=== PATIENT | female | born 1970 | race Two or more races ===

== ENCOUNTER 2019-02-14 23:03 | Inpatient (IN) | payer MEDICAID ==
[~2019-02-14] VITALS: Ht 152.4 cm; Wt 82.6 kg
--- NOTE | 2019-02-14 23:15 | NUR ---
PT BIBSELF C/O MIDSTERNAL CHEST PAIN X3HR PUBLISHING MANAGER. PT ALSO C/O NAUSEA AND SOB. DENIES HEADACHE, DIZZNESS. PT AAOX4. RESPIRATIONS EVEN AND UNLABORED. SKIN WARM AND INTACT. NO ACUTE DISTRESS NOTED AT THIS TIME. PLACED ON CONTINUOUS CARBONIZER, WILL CONTINUE TO MONITOR
[2019-02-14] MEDS ORDERED: ASPIRIN 325 MG TABLET PO ONE (23:30)
[2019-02-14] MEDS ORDERED: NITROGLYCERIN 0.4 MG/TAB BOTTLE SL ONE (23:30)
[2019-02-14] MEDS ORDERED: ASPIRIN 325 MG TABLET ONE (23:31)
[2019-02-14] MEDS ORDERED: NITROGLYCERIN 0.4 MG/TAB BOTTLE ONE (23:31)
--- NOTE | 2019-02-14 23:37 | NUR ---
PT BP 120/54 HR 65, MD AWARE. PER VERBAL MD ORDER, WILL ADMINISTER NITROSTAT SL.
[2019-02-14 23:44] LABS: BASOPHILS % (AUTO) 0.6 % (0.0-2.0); EOSINOPHILS % (AUTO) 1.5 % (0.0-6.0); HEMATOCRIT 39 % (33-45); HEMOGLOBIN 13.7 g/dL (11.5-14.8); LYMPHOCYTES # (AUTO) 2.1 /CMM (0.8-4.8); LYMPHOCYTES % (AUTO) 30.2 % (20.0-44.0); MEAN CORPUSCULAR HGB CONC 35 g/dl (31.0-36.0); MEAN CORPUSCULAR VOLUME 86 fL (82-100); MONOCYTES # (AUTO) 0.4 /CMM (0.1-1.30); NEUTROPHILS # (AUTO) 4.4 /CMM (1.8-8.9); NEUTROPHILS % (AUTO) 62.7 % (43.0-81.0); PLATELET COUNT (AUTO) 329 /CMM (150-450); RED BLOOD CELL COUNT(AUTO) 4.51 MIL/uL (4.0-5.2)
[2019-02-14 23:51] LABS: CARBON DIOXIDE 28 mmol/L (21-32); CHLORIDE 104 mmol/L (98-107); CREATININE 0.8 mg/dL (0.6-1.3); GLUCOSE 95 mg/dL (74-106); POTASSIUM 3.9 mmol/L (3.5-5.1); SODIUM SERUM 143 mmol/L (136-145); UREA NITROGEN, BLOOD 12 mg/dL (7-18)
[2019-02-15 00:05] LABS: ALANINE AMINOTRANSFERASE 58 U/L (12-78); ALBUMIN 4.7 g/dL (3.4-5.0); ALKALINE PHOSPHATASE 222 U/L (46-116); ASPARTATE AMINOTRANSFERASE 34 U/L (15-37); BILIRUBIN,DIRECT 0.1 mg/dL (0.0-0.2); BILIRUBIN,TOTAL 0.7 mg/dL (0.2-1.0); LIPASE 487 U/L (73-393); TOTAL PROTEIN, SERUM 8.8 g/dL (6.4-8.2)
--- NOTE | 2019-02-15 00:23 | NUR ---
PAGED ROSIE HODGE
--- NOTE | 2019-02-15 00:32 | NUR ---
ULTRASOUND AT BEDSIDE
--- NOTE | 2019-02-15 02:17 | NUR ---
PT RESTING COMFORTABLY IN BED, VITAL SIGNS STABLE. NO ACUTE DISTRESS NOTED AT THIS TIME. WILL CONTINUE TO MONITOR
--- NOTE | 2019-02-15 04:20 | NUR ---
PT RESTING COMFORTABLY IN BED. VITAL SIGNS STABLE. NO ACUTE DISTRESS NOTED AT THIS TIME. WILL CONTINUE TO MONITOR
--- NOTE | 2019-02-15 05:05 | NUR ---
GAVE REPORT TO KALEE OLVERA FOR MARCOS
[2019-02-15] MEDS ORDERED: ATOR40TA PO (05:06)
[2019-02-15] MEDS ORDERED: TRAZ-182 PO (05:06)
[2019-02-15] MEDS ORDERED: METF-440 PO (05:06)
[2019-02-15] MEDS ORDERED: VITAMIN D2 PO (05:06)
--- NOTE | 2019-02-15 05:25 | NUR ---
PT TRANSFERRED PER [facility] PROTOC[facility]
[2019-02-15 05:30] VITALS: BP 119/73
--- NOTE | 2019-02-15 05:30 | NUR ---
TELE FRAME BENDER INITIAL NOTES ADMIT PT FROM ER DX OF CHEST PAIN. PT IS ALERT ORIENTED , AMBULATORY, PLEASANT ACCOMPANIED BY ER NURSE AND TECH. ORIENTED HOW TO USED THE CALL LIGHT SYSTEM. DENIES ANY PAIN OR ANY DISCOMFORT AT THIS TIME. SHE STATED FEEL BETTER AFTER SHE GOT THE MEDICATION THAT THEY WILL PUT UNDER HER TONGUE . DENIES ANY DIZZINES., NO N.V . ASSESSMENT DONE AND RECORDED. TELE SINUS RHYTHM HEART RATE 61 PER MONITOR. VITAL SIGNS WITHIN NORMAL,LIMIT. WILL CONTINUE MONITORING PLACE CALL LIGHT AT REACH.
[2019-02-15] MEDS ORDERED: *INSULIN REGULAR(HUMULIN R)HUM 100 UNIT/ML VIAL SQ PRN (06:00)
[2019-02-15] MEDS ORDERED: DEXTROSE 50%-WATER 50 ML DISP.SYRIN IV PRN (06:00)
[2019-02-15] MEDS ORDERED: INSULIN REGULAR, HUMAN 100 UNIT/ML 3 ML VIAL SQ PRN (06:00)
[2019-02-15] MEDS ORDERED: IV 1/2NS 1000 ML 1,000 ML IV SCH (06:00)
[2019-02-15] MEDS ORDERED: BLOOD SUGAR DIAGNOSTIC 1 EACH STRIP VI SCH (07:30)
--- NOTE | 2019-02-15 07:39 | NUR ---
PUBLIC HEALTH PROGRAM MANAGER OPENING NOTES Received patient on room air, no sob noted. Patient denies any pain at this time, patient comfortably lying down in bed. Patient remains TELE at this time, bed at the lowest setting, call light within reach. Patient is seen with her daughter bedside.
--- NOTE | 2019-02-15 07:41 | NUR ---
TEL CANNONEER CLOSING NOTES PT STILL AWAKE AND ALERT WATCHING TV AT THIS TIME, NO SIGNS OF ANY DISCOMFORT. KEPT HER COMFORTABLE AT ALL TIMES. TELE SR PER MONITOR. ENDORSE TO AM NURSE FOR CONTINUITY OF CARE DAUGHTER STILL AT THE BEDSIDE.
[2019-02-15 08:00] VITALS: BP 112/66
[2019-02-15 08:02] LABS: CHOLESTEROL 59 mg/dL (<200); HDL CHOLESTEROL 33 mg/dL (40-60); LDL 28 mg/dL (0-99); TRIGLYCERIDES 62 mg/dL (30-150)
[2019-02-15 08:09] LABS: B-TYPE NATRIURETIC PEPTIDE 25 PG/ML (0-125)
[2019-02-15] MEDS ORDERED: ATORVASTATIN 40 MG TABLET PO SCH (09:00)
[2019-02-15] MEDS ORDERED: LOSARTAN POTASSIUM 50 MG TABLET PO SCH (09:30)
[2019-02-15] MEDS ORDERED: ASPIRIN 81 MG TAB.CHEW PO SCH (09:30)
[2019-02-15] MEDS ORDERED: ACETAMINOPHEN 325 MG TABLET PO PRN (09:30)
[2019-02-15 09:46] VITALS: BP 112/66
[2019-02-15] MEDS ORDERED: METOPROLOL TARTRATE INJ 5 MG/5 ML AMPUL ONE (10:50)
[2019-02-15] MEDS ORDERED: IOHEXOL-350 100 ML VIAL IV ONE (10:50)
[2019-02-15] MEDS ORDERED: CT SWABBABLE VALVE TRANS SET 1 EA INFUS.SET MC ONE (10:50)
[2019-02-15] MEDS ORDERED: IV NS 0.9% 250 ML IV ONE (10:51)
[2019-02-15] MEDS ORDERED: METOPROLOL TARTRATE INJ 5 MG/5 ML AMPUL IVP ONE (11:30)
[2019-02-15] MEDS ORDERED: IV NS 0.9% 500 ML IV ONE (11:30)
[2019-02-15] MEDS ORDERED: NITROGLYCERIN 0.4 MG/TAB BOTTLE SL ONE (11:30)
--- NOTE | 2019-02-15 14:39 | NUR ---
RESIDENTIAL LEASING MANAGER DISCHARGE NOTES Patient discharged on room air, no sob noted. Patient denies pain. Patient's vital signs remain stable. Patient has all the paper works, signed and has a copy of them. Patient signed the belongings list stating that she has everything. Patient received discharge instructions and understands them. Patient has her cellphone, wallet and other valuables with her. Patient walked home, stated that she lived 2-3 blocks away from the hospital. Charge nurse aware and she agreed that patient can walk.
[2019-02-15] MEDS ORDERED: TRAZODONE 50 MG TABLET PO SCH (22:00)
[2019-02-16] MEDS ORDERED: PANTOPRAZOLE 40 MG TABLET.DR PO SCH (07:30)
== END 2019-02-15 14:45 | disposition home or self-care (01) | DRG 203 ==
LOC: ER 23:09 → TELE 02-15 05:15 → MED 02-15 12:42
PROVIDERS: ADMIT Internal Medicine; ATTEND Internal Medicine
DX: R07.89 Other chest pain (principal); E11.9 Type 2 diabetes mellitus without complications; E78.5 Hyperlipidemia, unspecified; I10 Essential (primary) hypertension; Z90.49 Acquired absence of other specified parts of digestive tract; Z79.84 Long term (current) use of oral hypoglycemic drugs
CPT/HCPCS: 36415; 71045-TC; 75574; 76705-TC; 80048-TC; 80061-TC; 80076-TC; 82150-TC; 82962-TC; 83690-TC; 83880; 84484-TC; 85025-TC; 85730-TC; 87081-TC; 93307-TC; G0378; J1815; J3490; J7050; Q9967